=== PATIENT | male | born 1990 | race American Indian/Alaskan Native ===

== ENCOUNTER 2022-01-08 10:19 | Outpatient (CLI) | payer OTHER ==
[2022-01-08 11:19] LABS: Alanine Aminotransferase 22 units/L (7-56); BUN/Creatinine Ratio 11; Blood Urea Nitrogen 15 mg/dL (9-20); Calcium 9.1 mg/dL (8.4-10.2); Hemolysis Index 4
[2022-01-12 23:16] LABS: CD4/CD8 Ratio 0.35 (0.86-5.00)
== END 2022-01-08 10:20 | disposition home or self-care (01) ==
LOC: LAB 10:19
PROVIDERS: ATTEND Internal Medicine
DX: Z02.71 Encounter for disability determination (principal); F32.0 Major depressive disorder, single episode, mild; F41.8 Other specified anxiety disorders
CPT/HCPCS: 36415; 80053; 82024